=== PATIENT | male | born 1965 | race Caucasian/White ===

== ENCOUNTER 2018-02-12 12:01 | Emergency (ER) | payer OTHER | END 2018-02-12 16:42 | disposition home or self-care (01) | LOC: E/R 12:01 | DX: S09.90XA Unspecified injury of head, initial encounter (principal); S00.83XA Contusion of other part of head, initial encounter; Y04.8XXA Assault by other bodily force, initial encounter; Z21 Asymptomatic human immunodeficiency virus [HIV] infection status | CPT/HCPCS: 70450; 99284-25 ==